=== PATIENT | male | born 1990 | race Caucasian/White ===

== ENCOUNTER 2018-03-20 10:44 | Emergency (ER) | payer OTHER ==
[2018-03-20] MEDS ORDERED: Lidocaine 1% 30 ML SDV INJECT ONE (10:55)
[2018-03-20] MEDS ORDERED: Bacitracin Oint 1 GM U/D Packet TOP ONE (10:55)
[2018-03-20] MEDS ORDERED: Diphtheria,Pertussis(Acell),Tetanus Vaccine 0.5 ML SDV IM ONE (11:01)
--- NOTE | 2018-03-20 11:12 | EDM.PDOC ---
Scribed by Lala Bentley 03/20/18 1111 Raphael Evans MD ED HPI GENERAL MEDICAL PROBLEM - General Chief Complaint: General Stated Complaint: FISH HOOK LEFT INDEX FINGER Time Seen by Provider: 03/20/18 10:55 Source of Information: Reports: Patient, RN, RN Notes Reviewed History Limitations: Reports: No Limitations - History of Present Illness INITIAL COMMENTS - FREE TEXT/NARRATIVE: Patient presents to ER with a fishhook in his left index finger. No other injuries. Tetanus is greater than 10 years ago. Onset: Today Location: Reports: Upper Extremity, Left Quality: Reports: Ache Severity: Moderate Improves with: Reports: None Worsens with: Reports: None Associated Symptoms: Reports: No Other Symptoms - Related Data Allergies Allergy/AdvReac Type Severity Reaction Status Date / Time No Known Allergies Allergy Verified 03/20/18 10:49 Home Meds: Home Meds . [No Known Home Meds] 03/20/18 [History] ED ROS GENERAL - Review of Systems Review Of Systems: ROS reveals no pertinent complaints other than HPI. ED EXAM, GENERAL - Physical Exam Exam: See Below Exam Limited By: No Limitations General Appearance: Alert, WD/WN, No Apparent Distress Head: Atraumatic, Normocephalic Extremities: Normal Range of Motion, Normal Capillary Refill, Other (fish hook in left distal finger, no erythema, no active bleeding) Course - Vital Signs Last Recorded V/S: Last Vital Signs Temp 36.9 C 03/20/18 10:47 Pulse 62 03/20/18 10:47 Resp 16 03/20/18 10:47 BP 147/91 H 03/20/18 10:47 Pulse Ox 99 03/20/18 10:47 - Orders/Labs/Meds Orders: Active Orders 24 hr Category Date Time Status Vaccines to be Administered [RC] PER UNIT ROUTINE Care 03/20/18 11:01 Active Meds: Medications Discontinued Medications Generic Name Dose Route Start Last Admin Trade Name Anaya PRN Reason Stop Dose Admin Bacitracin 1 dose 03/20/18 10:55 03/20/18 11:00 Bacitracin Oint 1 Gm TOP 03/20/18 10:56 1 dose ONETIME ONE Administration Diphtheria/Tetanus/Acell Pertussis 0.5 ml 03/20/18 11:01 03/20/18 11:05 Adacel IM 03/20/18 11:02 0.5 ml .ONCE ONE Administration Lidocaine HCl 30 ml 03/20/18 10:55 03/20/18 11:00 Xylocaine-Mpf 1% INJECT 03/20/18 10:56 30 ml ONETIME ONE Administration - Radiology Interpretation Free Text/Narrative:: Fish hook removal left index finger. Area cleaned and prepped by RN with hibiclens and sterile water. Area of fish hook locally blocked with lidocaine 1 % 5cc. Using clean tech. the eye of the hook and lure were cut free and removed with side cutter. The hook shank grasped with needle nosed plier and advanced until the hook and barbra were exposed through the skin and removed with side cutter. The remaining hook backed out the entry wound. No residual foreign body. Wound was cleansed, and dried, bacitracin ointment applied, and dressing by RN. No complications. Departure - Departure Time of Disposition: 11:10 Disposition: Home, Self-Care 01 Condition: Good Clinical Impression: Fish hook injury of left index finger Qualifiers: Encounter type: initial encounter Qualified Code(s): S69.92XA - Unspecified injury of left wrist, hand and finger(s), initial encounter - Discharge Information Forms: ED Department Discharge Additional Instructions: Use over the counter Bacitracin or Neosporin ointment to finger wound four times a day for 4 to 5 days. Follow up in clinic or return to ER if any signs of infection develop. - My Orders Last 24 Hours: My Active Orders 03/20/18 11:01 Vaccines to be Administered [RC] PER UNIT ROUTINE - Assessment/Plan Last 24 Hours: My Active Orders 03/20/18 11:01 Vaccines to be Administered [RC] PER UNIT ROUTINE I have read and agree with the documentation that has been completed regarding this visit. By signing this record, I attest that the documentation was completed in my physical presence and is an accurate record of the encounter.
== END 2018-03-20 11:21 | disposition home or self-care (01) ==
LOC: DL.ED 10:44
DX: S60.451A Superficial foreign body of left index finger, initial encounter (principal); I10 Essential (primary) hypertension; W45.8XXA Other foreign body or object entering through skin, initial encounter
CPT/HCPCS: 10060; 90471; 90715; 99283